=== PATIENT | male | born 1975 | race Caucasian/White ===

== ENCOUNTER 2017-02-10 11:44 | Day surgery (SDC) | payer BC ==
[~2017-02-10] VITALS: Ht 167.6 cm; Wt 84.7 kg
[2017-02-10 13:09] VITALS: Ht 167.6 cm; Wt 84.7 kg
[2017-02-10] MEDS ORDERED: NO MEDS (13:10)
[2017-02-10 14:00] VITALS: BP 138/85; PULSE 87; RESP 25
[2017-02-10 15:09] VITALS: BP 137/70; PULSE 64; RESP 14
[2017-02-10] MEDS ORDERED: ONDANSETRON 4 MG INJ ONE (15:13)
[2017-02-10] MEDS ORDERED: DEXAMETHASONE 4 MG/ML 1 ML INJ ONE (15:13)
[2017-02-10] MEDS ORDERED: METOCLOPRAMIDE 10 MG INJ ONE (15:13)
--- NOTE | 2017-02-10 15:16 | OPPN ---
Date/Time of Note Date/Time of Note DATE: 02/10/17 TIME: 15:10 Proc Note GI Procedure date: Feb 10, 2017 Pre-procedure Diagnosis Hematochezia Post-procedure Diagnosis Impression: * Large pedunculated polyp in the sigmoid colon * Post piecemeal complete resection plus localization tattoo * Moderate-sized internal hemorrhoids * Otherwise normal colonoscopy to cecum Plan: * Clear liquid diet for the next 24 hours * Observer evident for evidence of complications such as nausea vomiting, fever , bleeding, severe abdominal pain . Operation Performed Colonoscopy plus polypectomy Colonoscopy plus localization tattoo Surgeon: FORREST MONTES MD Anesthesia Type: MAC Estimated blood loss: minimal Transfusion Required: no Specimens Sigmoid polyp/piecemeal resection Grafts/Implants: none Complications: no Pt Condition post procedure: stable Disposition: PACU FORREST MONTES MD Feb 10, 2017 15:16
[2017-02-10 15:52] VITALS: BP 119/71; PULSE 83; RESP 14
== END 2017-02-10 18:12 | disposition home or self-care (01) ==
LOC: GIL 11:44
PROVIDERS: ATTEND Internal Medicine Gastroenterology
DX: K92.1 Melena (principal); K64.8 Other hemorrhoids
CPT/HCPCS: 45380; 88305; J1100; J2405; J2765; Z7610